=== PATIENT | female | born 1955 | race Caucasian/White ===

== ENCOUNTER 2024-01-16 14:39 | Outpatient (CLI) | payer MEDICARE | END 2024-01-16 14:40 | disposition home or self-care (01) | LOC: CSHRAD 14:39 | PROVIDERS: ATTEND Internal Medicine Hematology & Oncology | DX: C79.51 Secondary malignant neoplasm of bone (principal); C50.412 Malignant neoplasm of upper-outer quadrant of left female breast | CPT/HCPCS: 93005; 93010 ==

== ENCOUNTER 2024-01-29 08:30 | Outpatient (CLI) | payer MEDICARE | END 2024-01-29 08:31 | disposition home or self-care (01) | LOC: CSHRAD 08:30 | PROVIDERS: ATTEND Nurse Practitioner Family | DX: R00.2 Palpitations (principal) | CPT/HCPCS: 93005; 93010 ==

== ENCOUNTER 2025-04-07 08:28 | Outpatient (CLI) | payer MEDICARE, OTHER | END 2025-04-07 08:29 | disposition home or self-care (01) | LOC: CSHSLEEP 08:28 | PROVIDERS: ATTEND Physician Assistant | DX: G47.33 Obstructive sleep apnea (adult) (pediatric) (principal); R53.83 Other fatigue; G25.89 Other specified extrapyramidal and movement disorders; E66.9 Obesity, unspecified; Z68.28 Body mass index [BMI] 28.0-28.9, adult | CPT/HCPCS: 95800 ==

== ENCOUNTER 2025-06-15 10:31 | Day surgery (SDC) | payer MEDICARE, OTHER ==
[2025-06-14 15:32] VITALS: BMI 27.3
[2025-06-15] MEDS ORDERED: Oxymetazoline HCl 0.05% (15 ML) ONE (12:50)
[2025-06-15] MEDS ORDERED: AFRIN NASAL MIST 15 ML BOT ONE (12:51)
[2025-06-15] MEDS ORDERED: Lidocaine 1% PF 5 ML VIAL ONE (13:16)
[2025-06-15] MEDS ORDERED: PROPOFOL 20 ML ONE (13:16)
== END 2025-06-15 15:25 | disposition home or self-care (01) ==
LOC: CSHSDC 10:31
PROVIDERS: ATTEND Otolaryngology Otolaryngic Allergy
PROC: 3E0 Administration, Physiological Systems and Anatomical Regions, Introduction (ICD-10-PCS; principal; 2025-06-15)
DX: J38.01 Paralysis of vocal cords and larynx, unilateral (principal); K21.9 Gastro-esophageal reflux disease without esophagitis; H61.21 Impacted cerumen, right ear; L29.9 Pruritus, unspecified; J30.1 Allergic rhinitis due to pollen; Z90.49 Acquired absence of other specified parts of digestive tract; Z90.710 Acquired absence of both cervix and uterus
CPT/HCPCS: 31570; J0169; J1100; J2250; J2704; L8607